=== PATIENT | female | born 1965 | race Caucasian/White ===

== ENCOUNTER 2019-12-25 00:29 | Emergency (ER) | payer SELFPAY ==
[~2019-12-25] VITALS: Ht 167.6 cm; Wt 120.2 kg
[~2019-12-25 00:29] MED LIST: ACET325T14 PO; ACID1TAB7 PO; AMOX1TAB64 PO; ANTIBIOTIC; CETI10TA18 PO; DIPH28CR21 TP; HYDR50CA2 PO; NICO-487 TD
[2019-12-25] MEDS ORDERED: ASPI-650 PO (01:20)
--- NOTE | 2019-12-25 01:20 | NUR ---
C/o right wrist pain 07/15 x1 week after fall. Pt in gurney, side rails up, call light within reach.
[2019-12-25] MEDS ORDERED: ACETAMINOPHEN 500 MG TABLET PO ONE (01:30)
[2019-12-25] MEDS ORDERED: IBUPROFEN 600 MG TABLET PO ONE (01:30)
[2019-12-25] MEDS ORDERED: ACETAMINOPHEN 500 MG TABLET ONE (01:34)
[2019-12-25] MEDS ORDERED: IBUPROFEN 600 MG TABLET ONE (01:34)
--- NOTE | 2019-12-25 01:58 | NUR ---
Pt to xray.
[2019-12-25 03:02] VITALS: BP 124/74
--- NOTE | 2019-12-25 03:12 | NUR ---
TECH AT BEDSIDE FOR SPLINT
--- NOTE | 2019-12-25 03:17 | NUR ---
Tech at bedside for splint.
== END 2019-12-25 03:34 | disposition home or self-care (01) ==
LOC: ED 01:29
DX: S52.691A Other fracture of lower end of right ulna, initial encounter for closed fracture (principal); F17.200 Nicotine dependence, unspecified, uncomplicated; W18.30XA Fall on same level, unspecified, initial encounter; Y93.89 Activity, other specified; Y92.410 Unspecified street and highway as the place of occurrence of the external cause; Y99.8 Other external cause status
CPT/HCPCS: 29125; 99283